=== PATIENT | male | born 1995 | race Caucasian/White ===

== ENCOUNTER 2021-07-10 08:11 | Emergency (ER) | payer BC, SELFPAY ==
[2021-07-10 08:18] VITALS: BP 149/88; PULSE 79; RESP 16; TEMP 36.7; O2SAT 99; BMI 27.6
--- NOTE | 2021-07-10 08:41 | XR_ITS ---
WS: [id number] Exam: XR KUB portable [id number] Date/Time of Exam: 07/10/2021 8:43 AM Reason For Exam: abd pain No bowel obstruction or free air. No sign of organ enlargement. Regional bony structures are intact. XR/XR KUB portable [id number] IMPRESSION: 1. No acute abdominal finding.
--- NOTE | 2021-07-10 08:41 | ED_ITS ---
HPI - Nausea/Vomiting/Diarrhea General: Chief complaint: Nausea/Vomiting/Diarrhea Stated complaint: diarrhea/vomiting/stomach cramps/difficulty eating Time Seen by Provider: 07/10/21 08:12 Source: patient Mode of arrival: ambulatory Limitations: no limitations History of Present Illness: 26-year-old male presents emergency room abdominal pain and cramping. This began about 2 to 3 days ago and seems to be progressively worsening. Refers the pain to the periumbilical area. He took some ibuprofen last night with no significant improvement. Denies any hematochezia melena hematemesis coffee-ground emesis no dysuria urgency or frequency. Eating does seem to make it slightly worse. No previous abdominal surgeries. Bowels and bladder have otherwise been normal for his routine. MD elicited complaint: nausea, vomiting and diarrhea Onset (ago): day(s) (3) Description of vomiting: watery Description of diarrhea: semi-solid Associated nausea: Yes Associated abdominal pain: Yes Location of pain: Periumbilical Pain consistency: constant Severity: moderate Quality: cramping Exacerbating factors: eating Relieving factors: none Associated symtoms: Reports nausea; Denies altered mental status, anxiety, bloating, change in vision, chest pain, cough, diaphoresis, decreased urine output, dizziness, dysuria, epistaxis, fatigue, fecal incontinence, fevers/chills, headache(s), anorexia, malaise, myalgias, numbness, palpitations, rash, short of breath, syncope, tenesmus, tinnitus or weakness Review of Systems Const: Denies: fever(s), chills, fatigue, malaise or diaphoresis Eyes: Denies: change in vision ENMT: Denies: tinnitus or epistaxis Card: Denies: chest pain, palpitations or syncope Resp: Denies: dyspnea, productive cough or non-productive cough GI: Reports: abdominal pain, nausea, vomiting, heartburn, diarrhea and GI cramping; Denies: hematemesis, coffee ground emesis, dysphagia, constipation, bloating or fecal incontinence : Denies: flank pain, difficulty urinating, dysuria, urinary frequency or urinary urgency Skin/Breast: Denies: rash or pruritus Neuro: Denies: headache(s) or dizziness Psych: Denies: anxiety PFSH ED PFSH: Medical History (Updated 04/18/22 @ 12:07 by Kavin Swartz DO) No significant past medical history Surgical History (Updated 07/10/21 @ 08:47 by Kavin Swartz DO) No significant past surgical history Physical Exam Const: EXAM LIMITATIONS: no altered mental status GENERAL APPEARANCE: cooperative and comfortable ORIENTATION/CONSCIOUSNESS: Yes awake, Yes oriented to person, Yes oriented to place and Yes oriented to time HENMT: COMMON NORMALS: normocephalic, atraumatic and hearing grossly normal bilaterally HEAD & SCALP: normocephalic and atraumatic Neck/C-Spine: COMMON NORMALS: no JVD Resp: COMMON NORMALS: normal respiratory effort, No retractions, No use of accessory muscles and clear to auscultation bilaterally AUSCULTATION: clear to auscultation bilaterally Cardio: COMMON NORMALS: no JVD, regular rate, regular rhythm and No murmurs present (Cardio) RATE: regular rate RHYTHM: regular rhythm GI: COMMON NORMALS: Soft to palpation and No hepatosplenomegaly present AUSCULTATION: Yes normoactive bowel sounds PALPATION: Yes Soft to palpation, No Tenderness to palpation present (GI), No Guarding due to palpation present (GI) and Yes No hepatosplenomegaly present Extremity: COMMON NORMALS: normal to inspection, capillary refill normal, no clubbing, cyanosis or edema, no calf tenderness and no pedal edema Neuro: SENSORIUM/ORIENTATION: Yes oriented to person, Yes oriented to place and Yes oriented to time Skin: COMMON NORMALS: no rashes or lesions noted GENERAL SKIN EXAM: no rashes or lesions noted Course Vital Signs: Vital signs: Vital Signs Temperature 97.8 F 07/10/21 12:35 Pulse Rate 68 07/10/21 12:35 Respiratory Rate 14 07/10/21 12:35 Blood Pressure 151/87 07/10/21 12:35 Pulse Oximetry 99 07/10/21 12:35 MDM - Nausea/Vomiting/Diarrhea Medical Decision Making Patient feeling better after fluids will discharge home clinical diet advance as tolerated started on Pepcid and use antiemetics as needed follow-up as needed return if worsens. Repeat abdominal exam benign Medical Records I reviewed the patient's medical records. Lab Data I reviewed the patient's lab results. : 07/10/21 09:22 07/10/21 09:22 Radiology Impressions KUB X-Ray 07/10/21 08:41 IMPRESSION: 1. No acute abdominal finding. Laboratory Results WBC 6.0 10^3/uL (4.0-10.0) 07/10/21 09:22 RBC 6.06 10^6/uL (4.1-5.3) H 07/10/21 09:22 Hgb 15.3 g/dL (11.7-16.6) 07/10/21 09: Hct 48.0 % (42.0-52.0) 07/10/21 09:22 MCV 79.2 fl (80-94) L 07/10/21 09:22 MCH 25.2 pg (28.0-34.0) L 07/10/21 09: MCHC 31.9 g/dL (30.0-36.0) 07/10/21 09: RDW 13.9 % (12.1-15.1) 07/10/21 09:22 Plt Count 242 10^3/cmm (130-400) 07/10/21 09:22 MPV 11.2 fL (7.4-10.4) H 07/10/21 09:22 Neut % (Auto) 64.4 % 07/10/21 09:22 Lymph % (Auto) 22.3 % 07/10/21 09:22 [place] % (Auto) 11.1 % 07/10/21 09:22 Eos % (Auto) 1.8 % 07/10/21:22 Baso % (Auto) 0.2 % 07/10/21:22 Neut # (Auto) 3.84 10^3/uL (1.8-7.7) 07/10/21 09:22 Lymph # (Auto) 1.3 10^3/uL (0.8-4.8) 07/10/21 09:22 [place] # (Auto) 0.7 10^3/uL (0.2-0.9) 07/10/21: Eos # (Auto) 0.1 10^3/uL (0.0-0.8) 07/10/21 09:22 Baso # (Auto) 0.0 10^3/uL (0.0-0.1) 07/10/21 09:22 Nucleated RBC % (auto) 0 % 07/10/21: Nucleated RBCs # 0.0 /100WBC 07/10/21 09: Sodium 138 mmol/L (136-145) 07/10/21: Potassium 4.0 mmol/L (3.5-5.1) 07/10/21: Chloride 102 mmol/L (98-107) 07/10/21: Carbon Dioxide 23 mmol/L (22-29) 07/10/21: Anion Gap 17.0 (5-19) 07/10/21: BUN 15 mg/dL (6-20) 07/10/21: Creatinine 1.2 mg/dL (0.7-1.2) 07/10/21: GFR Calculation 74.4 mL/min (90-130) L 07/10/21: Glucose 92 mg/dL (65-115) 07/10/21: Calculated Osmolality 286 mOsm/kg (285-295) 07/10/21: Calcium 9.6 mg/dL (8.5-10.5) 07/10/21: Total Bilirubin 0.4 mg/dL (0.15-1.2) 07/10/21: AST 16 U/L (0-40) 07/10/21: ALT 10 U/L (0-41) 07/10/21: Alkaline Phosphatase 72 IU/L (40-130) 07/10/21: Total Protein 8.2 g/dL (6.6-8.7) 07/10/21: Albumin 4.6 g/dL (3.5-5.2) 07/10/21: Globulin 3.6 g/dL (1.3-4.6) 07/10/21: Lipase 15 U/L (13-60) 07/10/21: Urine Color Yellow (Yellow) 07/10/21:24 Urine Appearance Clear (CLEAR) 07/10/21:24 Urine pH 5 (5-7) 07/10/21 09:24 Ur Specific [place] 1.025 (1.005-1.030) 07/10/21:24 Urine Protein Neg (Negative) 04/18/22 09:24 Urine Glucose (UA) Norm (Normal) 07/10/21 09:24 Urine Ketones Negative (Negative) 07/10/21 09:24 Urine Blood Neg (Negative) 07/10/21 09:24 Urine Nitrate Negative (Negative) 07/10/21 09:24 Urine Bilirubin Neg (Negative) 07/10/21 09:24 Urine Urobilinogen Norm mg/dL (Negative) 07/10/21 09:24 Ur Leukocyte Esterase Negative (Negative) 07/10/21 09:24 Discharge Plan Discharge Patient Disposition: Home Clinical Impression: Gastroenteritis Condition: Stable Prescriptions: New ondansetron HCl 4 mg tablet 4 mg PO Q6H PRN (Reason: nausea and vomiting) Qty: 20 0RF Pepcid 40 mg tablet 40 mg PO BID Qty: 60 0RF Discharge Orders: Discharge ED (Routine); Ordered 07/10/21 Ordered By: Kavin Swartz Patient Instructions: Opioid Safety Activity Restrictions/Additional Instructions: Up with your primary care doctor the next week if not improving 24 hours clear liquid diet and advance as tolerated Coding Level of Care Code ED [employer] Fre[employer] for [employer] Fwd Exam Comprehensive
--- NOTE | 2021-07-10 08:42 | ECG_ITS ---
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 Measurements Intervals [place] Rate: 70 P: 46 TN: 162 QRS: 101 QRSD: 103 T: 19 QT: 385 QTc: 415 Interpretive Statements SINUS RHYTHM RIGHT AXIS DEVIATION [QRS AXIS > 100] No previous ECG available for comparison Electronically Signed On 07-11-2021 7:28:27 CDT by Shannon Vargas M.D. [id number]
--- NOTE | 2021-07-10 09:26 | PC.NURSE ---
PT PLACED ON CONTINUOUS SPO2, NIBP, AND CM.
[2021-07-10] MEDS: lactated ringers 1,000 ML 999 ML IV (09:27)
[2021-07-10] MEDS: ondansetron 2 mg/ML SDV 2 mL 4 MG IVP (09:28)
[2021-07-10 09:33] LABS: Basophils % 0.2 %; Eosinophils # 0.1 10^3/uL (0.0-0.8); Eosinophils % 1.8 %; Hemoglobin 15.3 g/dL (11.7-16.6); Lymphocytes # 1.3 10^3/uL (0.8-4.8); Lymphocytes % 22.3 %; Mean Corpuscular HGB Conc 31.9 g/dL (30.0-36.0); Mean Corpuscular Hemoglobin 25.2 pg (28.0-34.0); Mean Corpuscular Volume 79.2 fl (80-94); Mean Platelet Volume 11.2 fL (7.4-10.4); Monocytes # 0.7 10^3/uL (0.2-0.9); Monocytes % 11.1 %; Neutrophils # 3.84 10^3/uL (1.8-7.7); Neutrophils % 64.4 %; Nucleated Red Blood Cells % 0 %; Platelet Count 242 10^3/cmm (130-400); Red Blood Count 6.06 10^6/uL (4.1-5.3); Red Cell Distribution Width 13.9 % (12.1-15.1)
[2021-07-10 09:34] LABS: Add Urine Microscopic? NO; Charge for UA Resulting for Rev
[2021-07-10 09:37] LABS: Bilirubin Urine Neg (Negative); Blood Urine Neg (Negative); Glucose Urine UA Norm (Normal); Ketones Urine Negative (Negative); Leukocyte Esterase Urine Negative (Negative); Nitrate Urine Negative (Negative); Protein Urine Neg (Negative); Specific Gravity, Urine 1.025 (1.005-1.030); Urine Appearance Clear (CLEAR); Urine Color Yellow (Yellow); Urobilinogen Urine Norm (Negative); pH Urine 5 (5-7)
[2021-07-10 09:59] LABS: Alanine Aminotransferase 10 U/L (0-41); Albumin Level 4.6 g/dL (3.5-5.2); Alkaline Phosphatase 72 IU/L (40-130); Aspartate Amino Transferase 16 U/L (0-40); Blood Urea Nitrogen 15 mg/dL (6-20); Calcium 9.6 mg/dL (8.5-10.5); Carbon Dioxide 23 mmol/L (22-29); Chloride 102 mmol/L (98-107); Globulin 3.6 g/dL (1.3-4.6); Glomerular Filtration Rate 74.4 mL/min (90-130); Glucose 92 mg/dL (65-115); Lipase 15 U/L (13-60); Osmolality Calculated 286 mOsm/kg (285-295); Sodium 138 mmol/L (136-145); Total Bilirubin 0.4 mg/dL (0.15-1.2); Total Protein 8.2 g/dL (6.6-8.7)
--- NOTE | 2021-07-10 11:18 | PC.NURSE ---
WHILE AT [facility]WAY PT IS IN NAD. PT DENIES ANY FURTHER NEEDS AT THIS TIME.
[2021-07-10 12:35] VITALS: BP 151/87; PULSE 68; RESP 14; TEMP 36.6; O2SAT 99
== END 2021-07-10 12:36 | disposition home or self-care (01) ==
PROVIDERS: Emergency Provider Family Medicine
DX: K52.9 Noninfective gastroenteritis and colitis, unspecified (principal)
CPT/HCPCS: 74018; 80053; 81003; 83690; 85025; 93005; 96361; 96374; 99283; J2405